=== PATIENT | male | born 1970 | race Caucasian/White ===

== ENCOUNTER 2018-02-04 09:43 | Emergency (ER) | payer SELFPAY ==
[2018-02-04 09:53] VITALS: BP 140/87; PULSE 110; RESP 18; TEMP 36.6; O2SAT 99; BMI 31.6
--- NOTE | 2018-02-04 10:02 | CT_ITS ---
STUDY: CT ABDOMEN AND PELVIS WITHOUT CONTRAST REASON FOR EXAM: Male, 47 years old. 3 day history of left flank pain. Hematuria. RADIATION DOSAGE (If Supplied By Facility): CTDIvol = ( 14.63 ) mGy, DLP = ( 775.97 ) mGycm TECHNIQUE: Transaxial images were obtained from the dome of the diaphragm to the symphysis pubis without oral contrast, and without intravenous contrast. Sagittal and coronal images were reconstructed. Individualized dose optimization techniques were used for this CT. COMPARISON: Comparison is made with prior study dated January 23, 2016. FINDINGS: The visualized lung bases are unremarkable. The visualized portions of the heart are within normal limits. 2.2 cm cyst in the anterior aspect of the left lobe of the liver. Normal gallbladder and extrahepatic biliary system. Normal spleen. Normal pancreas. Normal bilateral adrenal glands. Normal right kidney. Normal left kidney. Normal visualized stomach. Normal small intestine. Normal colon. The appendix is visualized and appears normal. There is scattered atherosclerotic calcification of the abdominal aorta, without a demonstrated aneurysm. Normal inferior vena cava. Normal retroperitoneum. Normal urinary bladder. There are prostatic calcifications. Calcified phleboliths are seen in the pelvis. There is a small umbilical hernia containing fat. Small bilateral inguinal hernias containing fat. Normal osseous structures. CT/Abdomen/Pelvis without Cont IMPRESSION: Stable cyst in the liver. No acute abnormality seen. Electronically Signed: Craig Bateman MD at 11:08 EDT Tel [phone], Service support ,
--- NOTE | 2018-02-04 10:04 | ED.DCSUM_ITS ---
- ER Visit Summary Date of Service: 02/04/18 Chief Complaint: Left flank pain, hematuria History of Present Illness: The patient is a 47 M started with left flank pain 2 days ago. He states it started to radiate down towards his left testicular area. He noted some hematuria today which is why he came in. He has been taking nothing for it at home. He does have a history of kidney stones approximately 2 years ago. He is felt nauseous but no vomiting. Denies any fevers. Physical Examination: Vital signs reviewed. HEENT exam unremarkable. Heart is regular rate and rhythm without murmurs. Lungs are clear to auscultation. Abdomen is soft with mild tenderness in the left lower quadrant. Extremities reveal no edema. Skin exam normal. Neurologic exam normal. Test Results: Urinalysis showed 0-5 red blood cells and 0-5 white blood cells. CAT scan of the flank reveals nothing acute Emergency Department Course and Treatment: Was given fluids, Toradol and Zofran. No signs of any kidney stones. It is possible he may have passed a kidney stone. I will give him naproxen for home. He will follow-up with his PCP Treatment Plan: [] Disposition: Discharge Impression: Left flank pain This note was generated with [employer] dictation software. It may contain incorrect words, spelling, and punctuation that were not noted in review of the chart prior to signing ED Disposition - Plan for ED Patient: Chief Complaint: Flank Pain Referrals: Care Physician,No Primary [Primary Care Provider] -
[2018-02-04] MEDS: Ondansetron 4 MG/2 ML Vial IV (10:26)
[2018-02-04] MEDS: 0.9% Normal Saline 1,000 ML 250 ML IV (10:26)
[2018-02-04] MEDS: Ketorolac 30 MG/ML Syringe IV (10:26)
[2018-02-04 12:11] VITALS: BP 138/71; PULSE 82; RESP 18; O2SAT 99
[2018-02-04 12:12] LABS: Color, Urine Amber (Yellow); Glucose, Dipstick Normal (Normal); Ketone-Dipstick 15 mg/dl (Negative); Leukocyte Esterase-Dipstick 25 /ul (Negative); Nitrite-Dipstick Negative (Negative); Occult Blood-Urine 10 /ul (Negative); Protein-Dipstick 30 mg/dl (Negative); Specific Gravity, Urine 1.025 (1.002-1.030); Urine Clarity Cloudy (Clear); Urine Urobilinogen 4 mg/dl (Normal)
[2018-02-04 12:16] LABS: Urine Bilirubin Dipstick 1 mg/dL (Negative)
[2018-02-04 12:39] LABS: Amorphous Sediment 1+; Bacteria 1+ /hpf (None Seen); Mucous, Urine 1+ /hpf (<or=2+); Red Blood Cells-Urine 0-5 SEEN /hpf (0-5); Squamous Epithelial Cells - UA 0-5 SEEN /hpf (0-5); White Blood Cells 0-5 SEEN /hpf (0-5)
--- NOTE | 2018-02-04 13:03 | ED.DEP ---
ED Disposition - Plan for ED Patient: Disposition: Home or Assisted Living Chief Complaint: Flank Pain Instructions: ED Flank Pain Uncertain Cause Prescriptions: Naproxen [Naprosyn] 500 mg PO BID PRN #20 tab Referrals: Care Physician,No Primary [Primary Care Provider] -
[2018-02-04 13:19] VITALS: BP 142/89; PULSE 67; RESP 16
== END 2018-02-04 13:19 | disposition home or self-care (01) ==
PROVIDERS: Emergency Provider Emergency Medicine
DX: R10.32 Left lower quadrant pain (principal); R31.9 Hematuria, unspecified; R11.0 Nausea; J44.9 Chronic obstructive pulmonary disease, unspecified; Z87.442 Personal history of urinary calculi; Z79.899 Other long term (current) drug therapy; Z72.0 Tobacco use
CPT/HCPCS: 74176; 81001; 96361; 96374; 96375; 99285; J7030; P9612; A4216; J2405

== ENCOUNTER 2018-02-27 14:45 | Emergency (ER) | payer SELFPAY ==
[2018-02-27 14:46] VITALS: BP 160/102; PULSE 84; RESP 16; TEMP 36.6; O2SAT 96; BMI 33.0
--- NOTE | 2018-02-27 15:29 | ED.DCSUM_ITS ---
- ER Visit Summary Date of Service: 02/27/18 Chief Complaint: Back pain History of Present Illness: The patient is a 47 M with no primary care physician. He reports this morning was lifting firewood at home and had the onset of low back pain. He states the sharp pain Zeta 10 at worst and 6 out of 10 currently. Is worsened by movement relieved by remaining still on aspirin. There is no relation to his legs. No numbness or weakness in his legs. No problems with his bowels or bladder. No groin numbness. Patient denies any recent trauma otherwise. No fall or MVA. Patient does report his had similar symptoms previously with his back. He denies any fever, chills, abdominal pain, dysuria, hematuria, or other complaints. Physical Examination: Vitals: Stable. Afebrile. General: A&O x 3. NAD. Cardiovascular exam: Regular rate and rhythm, no murmur, rub or gallop. Respiratory exam: Clear to auscultation bilaterally. No wheezes or stridor. Abdominal exam: Soft, nontender, nondistended, normal bowel sounds. No peritoneal signs. Back: Diffuse moderate tenderness to palpation over the lumbar spine and the paraspinous musculature in the lumbar region. No point tenderness. Negative straight leg bilaterally. 5/5 DF, PF, EHL bilaterally. Normal sensation to light touch throughout. Extremity: No clubbing, cyanosis, or edema. Emergency Department Course and Treatment: Patient was treated with naproxen and is resting comfortably. Treatment Plan: Patient will be discharged naproxen instructed follow-up Dr. Ino Tavarez 1 week if not improving. Return to the emergency department for any worsening symptoms. Disposition: To home in improved and stable condition. Impression: 1. Lumbar strain. This note was generated with [employer] dictation software. It may contain incorrect words, spelling, and punctuation that were not noted in review of the chart prior to signing ED Disposition - Plan for ED Patient: Chief Complaint: Back Instructions: ED Sprain Strain Lumbar Prescriptions: Naproxen [Naprosyn] 500 mg PO BID PRN #20 tablet Referrals: Ino Tavarez MD [STAFF PHYSICIAN] - 1 Week if not improving
[2018-02-27] MEDS: Naproxen 250 MG Tablet 500 MG PO (15:37)
== END 2018-02-27 15:44 | disposition home or self-care (01) ==
LOC: ED 15:39
PROVIDERS: Emergency Provider Emergency Medicine
DX: S39.012A Strain of muscle, fascia and tendon of lower back, initial encounter (principal); X50.0XXA Overexertion from strenuous movement or load, initial encounter; Y93.89 Activity, other specified; Y92.009 Unspecified place in unspecified non-institutional (private) residence as the place of occurrence of the external cause; Z72.0 Tobacco use
CPT/HCPCS: 99282